=== PATIENT | female | born 1975 | race Two or more races ===

== ENCOUNTER 2023-02-11 22:20 | Emergency (ER) | payer MEDICAID ==
[~2023-02-11] VITALS: Ht 162.6 cm; Wt 72.0 kg
[2023-02-12 01:51] LABS: Urine Amorphous Crystal MOD /hpf (None Seen); Urine Bacteria FEW /hpf (None Seen); Urine Blood 3+ /uL (Negative); Urine Mucus FEW (None Seen); Urine Specific Gravity 1.015 (1.001-1.035); Urine WBC 819 /hpf (0 - 5); Urine WBC Clumps PRESENT /hpf (None Seen)
[2023-02-12] MEDS ORDERED: SULF800T7 PO (03:00)
[2023-02-12] MEDS ORDERED: IBUP800T27 PO (03:00)
[2023-02-12] MEDS ORDERED: KETOROLAC TROMETH 60MG/2ML VIAL IM ONE (03:00)
[2023-02-12] MEDS ORDERED: cefTRIAXone SOD 1,000 MG VL IM ONE (03:00)
[2023-02-12 05:14] VITALS: BP 145/47
== END 2023-02-12 03:01 | disposition home or self-care (01) ==
LOC: ER 22:20
DX: N39.0 Urinary tract infection, site not specified (principal); Z79.1 Long term (current) use of non-steroidal anti-inflammatories (NSAID); Z79.899 Other long term (current) drug therapy
CPT/HCPCS: 81001; 96372; 99284; J0696; J1885